=== PATIENT | female | born 1975 | race Caucasian/White ===

== ENCOUNTER 2016-11-13 10:00 | Day surgery (SDC) | payer OTHER ==
[2016-11-09 09:26] VITALS: BMI 34.7
[~2016-11-13 10:00] MED LIST: LACTATED RINGERS 1,000 ML IV SCH
[2016-11-13 10:16] VITALS: RESP 16; TEMP 97.4
[2016-11-13] MEDS ORDERED: LIDOCAINE 1% 20 ML VIAL (10MG/ML) FOR IV START INTRADERMA ONE (10:20)
[2016-11-13] MEDS ORDERED: PROPOFOL 10 MG/ML 20 ML VIAL IV ONE (11:18)
--- NOTE | 2016-11-13 11:24 | P.GSHP ---
History of Present Illness H&P Date: 11/13/16 Chief Complaint: GERD This is a 41-year-old female referred from Dr. mae. Patient rents today for EGD. She's had issues with GERD. - Constitutional Constitutional: Reports as per HPI Past Medical History Past Medical History: GERD/Reflux Additional Past Medical History / Comment(s): STATES HAS HAD "HEART FLUTTERS" History of Any Multi-Drug Resistant Organisms: None Reported Past Surgical History: Breast Surgery Additional Past Surgical History / Comment(s): BREAST REDUCTION Past Anesthesia/Blood Transfusion Reactions: Motion Sickness Additional Past Anesthesia/Blood Transfusion Reaction / Comment(s): PRE MEDICATED FOR PONV FOR PREVIOUS SX Past Psychological History: ADD/ADHD, Anxiety, Depression Smoking Status: Never smoker Past Alcohol Use History: None Reported Past Drug Use History: None Reported - Past Family History Son(s) Family Medical History: Cancer Additional Family Medical History / Comment(s): NEUROBLASTOMA Medications and Allergies Home Medications Medication Instructions Recorded Confirmed Type Methylphenidate HCl [Concerta] 36 mg PO HS 11/09/16 11/13/16 History Venlafaxine HCl [Effexor] 75 mg PO 11/09/16 11/13/16 History Allergies Allergy/AdvReac Type Severity Reaction Status Date / Time codeine Allergy "SHUTS OFF Verified 11/09/16 09:20 MY AIRWAY" BAND AID Allergy RED, Uncoded 11/09/16 09:20 BURNING SKIN PAPER TAPE Allergy RED,ITCHING,BURNING Uncoded 11/09/16 09:20 SKIN Surgical - Exam Vital Signs Temp Pulse Resp BP Pulse Ox 97.4 F L 61 16 116/70 96 11/13/16 10:10 11/13/16 10:10 11/13/16 10:10 11/13/16 10:10 11/13/16 10:10 - General well developed, no distress - Eyes PERRL - ENT normal pinna - Neck no masses - Respiratory normal expansion - Cardiovascular Rhythm: regular - Abdomen Abdomen: soft, non tender Assessment and Plan Plan: GERD. We'll perform EGD.
--- NOTE | 2016-11-13 11:35 | P.OP ---
Date of Procedure: 11/13/16 Preoperative Diagnosis: Indigestion Postoperative Diagnosis: Mild antral gastritis No evidence of hiatal hernia Mild esophagitis Procedure(s) Performed: EGD Implants: Anesthesia: MAC Surgeon: Delbert Ralph Pathology: other (Antrum, esophagus) Condition: stable Disposition: PACU Indications for Procedure: Operative Findings: Description of Procedure: Patient's placed on the endoscopy table in the lateral position. She received IV sedation. The gastroscope some placed oropharynx passed in the esophagus and into the stomach. The scope was then placed through the pylorus. The first and second portion of the duodenum appeared normal. Scope was then brought back the antrum this appeared mildly inflamed. A biopsies performed. Scope was unretroflexed and remainder stomach appeared normal. The GE junction was at 40 cm. The distal esophagus appeared mildly inflamed a biopsies performed. There is no evidence of a hiatal hernia. The proximal esophagus appeared normal. Scope was withdrawn for patient. Due to the patient's symptoms of indigestion a HIDA scan was ordered. Patient was sent to recovery in stable condition.
[2016-11-13 11:52] VITALS: BP 104/65; PULSE 50
--- NOTE | 2016-11-13 15:06 | NM ---
EXAMINATION TYPE: NM hepatobiliary w EF DATE OF EXAM: 11/13/2016 COMPARISON: NONE HISTORY: Indigestion, heart burn, reflux TECHNIQUE: After the intravenous administration of 5.5 mCi Tc 99m Mebrofenin hepatobiliary scintigrap hy is performed. Immediate images post injection. FINDINGS: There is satisfactory initial accumulation of tracer by the liver. The gallbladder is visualized wit hin 14 minutes. The small bowel activity is noted within 16 minutes. At one hour 8 ounces of oral e nsure plus is given to mimic CCK and gallbladder ejection fraction is calculated at 92 %. Therefore there is no scintigraphic evidence of cystic or common bile duct obstruction to suggest acute cholecy stitis. IMPRESSION: No cystic duct reduction, gallbladder ejection fraction 92%
== END 2016-11-13 12:45 | disposition home or self-care (01) ==
LOC: ORWHC2ENDO 10:00
PROVIDERS: ATTEND Surgery
DX: K29.50 Unspecified chronic gastritis without bleeding (principal); K21.0 Gastro-esophageal reflux disease with esophagitis; K20.0 Eosinophilic esophagitis; K30 Functional dyspepsia; F90.9 Attention-deficit hyperactivity disorder, unspecified type; F32.9 Major depressive disorder, single episode, unspecified; F41.9 Anxiety disorder, unspecified; Z79.899 Other long term (current) drug therapy; Z88.5 Allergy status to narcotic agent; Z91.09 Other allergy status, other than to drugs and biological substances
CPT/HCPCS: 81025; 88305; 88342; 78226; 43239; A9537; J2704

== ENCOUNTER → 2022-01-03 | Outpatient (CLI) | payer OTHER ==
--- NOTE | 2022-01-03 11:25 | P.SLEEP ---
History of Present Illness DATE: 01/03/2022 CONSULTATION/NEW PATIENT EVALUATION HISTORY OF PRESENT ILLNESS/SLEEP-WAKE EVALUATION: 46year old lady had been ev aluated in the sleep center for possible obstructive sleep apnea hypopnea syndrome and excessive daytime sleepiness. SLEEP SCHEDULE: Usually sleep schedule on weekdays 910 PM to 6 AM, during days off 1011 PM to 89 AM. FALLING ASLEEP: No problem with falling asleep. DURING SLEEP: Patient usually sleeps on the side and stomach positions. She snores and wakes up several times. Positive history of nocturia. Episodes of panic attacks, restless legs, heartburn at night. No history of hypnogogical hallucinations, sleep paralysis, or cataplexy. DURING THE DAY/WAKE STATE: During the day patient has difficulties to pay attention this problem with memory concentration and irritability and depression anxiety. [place] sleepiness scale is 6, but this is with taken ritalin in up to 30 mg. Without Ritalin she probably will fall asleep during the day. PAST MEDICAL HISTORY: Depression, bipolar, episodes of panic attacks, ADH D, ALLERGY, menopause. PAST SURGICAL HISTORY: Breast reduction MEDICATIONS: Ritalyn 30 mg once a day, Zyrtec, Effor 37.5 mg once a day. SOCIAL HISTORY: Negative for smoking, alcohol consumption occasional. FAMILY HISTORY: Hypertension, cancer, restless leg syndrome. REVIEW OF SYSTEMS: Snoring, awakenings from sleep, tiredness and sleepiness during the day. No fevers. No double vision. No recent chest pain. No shortness of breath. No abdominal pain. No bleeding episodes. No blood in urine. No seizure episodes. PHYSICAL EXAMINATION: GENERAL: A pleasant patient without any distress. VITAL SIGNS: BP 117/77, HR 61, RR 16, weight 201 pounds, height 5 foot 3-1/4 inches, body mass index 35.3. HEENT: PERRLA, EOMI. Evaluation of oropharynx showed tongue protrudes midline, low position of soft palate Mallampati 4. NECK: Supple. No JVD. Thyroid is not palpable. 14-3/4 inches in circumference. LUNGS: Clear to percussion and to auscultation. Good air exchange. No wheezing or rhonchi. HEART: S1, S2 regular. No murmurs, gallops or rubs. ABDOMEN: Soft and nontender. Bowel sounds are present. No organomegaly appreciated. EXTREMITIES: No clubbing or cyanosis. BLOOD BANK SPECIALIST: Awake, alert, and oriented x3. Cranial nerves 2 to 7 intact. There is no fasciculation or atrophy noted. No focal deficits observed. ASSESSMENT: 1. Snoring, awakenings from sleep, extremely low position of soft palate Mallampati 4. Possible obstructive sleep apnea hypopnea syndrome. 2. Tiredness and sleepiness even while patient is on treatment with Ritalin. Differential diagnosis should include hypersomnia. 3 bipolar. 4. Depression. 5 history of panic attacks. 6. History of restless leg symptoms. 7. History of ADH D. 8. Menopause. 9. Status post breast reduction. PLAN: 1. Polysomnography for evaluation of patient's breathing during sleep. MSLT if sleep study is negative for obstructive sleep apnea hypopnea syndrome. No Ritalyn during MSLT. 2. CPAP/BiPAP titration if sleep study confirms obstructive sleep apnea- hypopnea syndrome. 3. Preferable position during sleep on the side. 4. No driving if patient feels any sleepiness. Patient is aware of civil and criminal liability for unsafe driving. 5. Sleep hygiene with regular sleep time for at least 7.5-8 hours. 6. Watching weight. Sincerely, Casey Owens MD, PhD, FAASM. Diplomat of [place] [employer], Sleep Medicine Board by [place] [employer] [place] [employer] Systems Engineer of [facility] [place] Past Medical History Past Medical History: GERD/Reflux Additional Past Medical History / Comment(s): STATES HAS HAD "HEART FLUTTERS" History of Any Multi-Drug Resistant Organisms: None Reported Past Surgical History: Breast Surgery Additional Past Surgical History / Comment(s): BREAST REDUCTION Past Anesthesia/Blood Transfusion Reactions: Motion Sickness Additional Past Anesthesia/Blood Transfusion Reaction / Comment(s): PRE MEDICATED FOR PONV FOR PREVIOUS SX Past Psychological History: ADD/ADHD, Anxiety, Depression Past Alcohol Use History: None Reported Past Drug Use History: None Reported - Past Family History Son(s) Family Medical History: Cancer Additional Family Medical History / Comment(s): NEUROBLASTOMA Medications and Allergies Home Medications Medication Instructions Recorded Confirmed Type Methylphenidate HCl [Concerta] 36 mg PO HS 11/09/16 11/21/16 History Venlafaxine HCl [Effexor] 75 mg PO HS 11/09/16 11/21/16 History Allergies Allergy/AdvReac Type Severity Reaction Status Date / Time codeine Allergy "SHUTS OFF Verified 11/21/16 12:36 MY AIRWAY" BAND AID Allergy RED, Uncoded 11/21/16 12:36 BURNING SKIN PAPER TAPE Allergy RED,ITCHING,BURNING Uncoded 11/21/16 12:36 SKIN Sleep Note - Sleep Note Sleep Note: Temperature: Pulse Rate: Respiratory Rate: Blood Pressure: SpO2: Height: Weight: BMI: Neck Circumference:
== END ==
LOC: SLEEP 09:55
PROVIDERS: ATTEND Internal Medicine
DX: R40.0 Somnolence (principal); R06.83 Snoring; F31.9 Bipolar disorder, unspecified; F41.0 Panic disorder [episodic paroxysmal anxiety]; G25.81 Restless legs syndrome; F90.9 Attention-deficit hyperactivity disorder, unspecified type; Z78.0 Asymptomatic menopausal state; Z98.890 Other specified postprocedural states; Z88.5 Allergy status to narcotic agent; Z91.048 Other nonmedicinal substance allergy status
CPT/HCPCS: 99211

== ENCOUNTER 2022-12-27 08:03 | Day surgery (SDC) | payer OTHER ==
[~2022-12-27 08:03] MED LIST changes: +DEXAMETHASONE SOD PHOSPHATE 4 MG/ML 1 ML VIAL IV ONE; +ONDANSETRON 4 MG/2 ML VIAL IVP ONE; +fentaNYL (PF) 50 MCG/ML 2 ML AMP IV PRN
[2022-12-27 08:37] VITALS: TEMP 97.3
[2022-12-27] MEDS ORDERED: PROPOFOL 10 MG/ML 20 ML VIAL IV ONE (08:59)
--- NOTE | 2022-12-27 09:01 | P.GSHP ---
History of Present Illness H&P Date: 12/27/22 Chief Complaint: Rectal bleeding This a 47-year-old female presents today for colonoscopy patient's issues with rectal bleeding. Past Medical History Past Medical History: GERD/Reflux, Skin Disorder Additional Past Medical History / Comment(s): STATES HAS HAD "HEART FLUTTERS" has not had in a long time, Sore left knee dog ran into her. eczema. History of Any Multi-Drug Resistant Organisms: None Reported Past Surgical History: Breast Surgery Additional Past Surgical History / Comment(s): BREAST REDUCTION, egd Past Anesthesia/Blood Transfusion Reactions: Motion Sickness, Postoperative Nausea & Vomiting (PONV) Additional Past Anesthesia/Blood Transfusion Reaction / Comment(s): PRE MEDICATED FOR PONV FOR PREVIOUS SX Smoking Status: Never smoker - Past Family History Son(s) Family Medical History: Cancer Additional Family Medical History / Comment(s): NEUROBLASTOMA Father Family Medical History: AFIB Medications and Allergies Home Medications Medication Instructions Recorded Confirmed Type Lisdexamfetamine Dimesylate 60 mg PO DAILY 12/25/22 12/27/22 History [Vyvanse] Neurochondria Coq10/B12 1 tab PO DAILY 12/25/22 12/25/22 History Unk Adrenaltone 2 tab PO BID 12/25/22 12/25/22 History Unk Femguard + Balance 1 tab PO DAILY 12/25/22 12/25/22 History Unk Fish Oil 1 tab PO HS 12/25/22 12/25/22 History Unk Otc Orthomune Immune 2 tab PO DAILY 12/25/22 12/25/22 History Venlafaxine HCl [Effexor] 75 mg PO HS 12/25/22 12/25/22 History hydrOXYzine pamoate [hydrOXYzine 25 mg PO HS 12/25/22 12/27/22 History PAMOATE] Allergies Allergy/AdvReac Type Severity Reaction Status Date / Time codeine Allergy "SHUTS OFF Verified 12/27/22 08:27 MY AIRWAY" latex Allergy red skin , Verified 12/27/22 08:27 rash BAND AID Allergy RED, Uncoded 12/27/22 08:27 BURNING SKIN PAPER TAPE Allergy RED,ITCHING,BURNING Uncoded 12/27/22 08:27 SKIN Surgical - Exam Vital Signs Temp Pulse Resp BP Pulse Ox 97.3 F L 67 16 105/56 94 L 12/27/22 08:34 12/27/22 08:34 12/27/22 08:34 12/27/22 08:34 12/27/22 08:34 - General well developed - Eyes normal ocular movement - ENT normal pinna - Neck no masses - Respiratory normal expansion - Cardiovascular Rhythm: regular - Abdomen Abdomen: soft, non tender Assessment and Plan Assessment: Rectal bleeding. We'll perform colonoscopy.
--- NOTE | 2022-12-27 09:15 | P.OP ---
Date of Procedure: 12/27/22 Preoperative Diagnosis: GI bleed Postoperative Diagnosis: Internal hemorrhoids Procedure(s) Performed: Colonoscopy Anesthesia: MAC Surgeon: Delbert Ralph Pathology: none sent Condition: stable Disposition: PACU Description of Procedure: The patient's placed on the endoscopy table in the lateral position. She received IV sedation. Digital rectal exam performed. This revealed a few internal hemorrhoids. Flexible colonoscope was then placed patient anus and passed throughout the entire colon. The ileocecal valve was visualized. The cecum, ascending and transverse colon appeared normal. The descending and sigmoid colon appeared normal. Scope was brought back the rectum this appeared normal. Scope withdrawn through the anus and internal hemorrhoids were noted. There is no evidence of any active GI bleed. Presumed patient may been bleeding from internal hemorrhoids.
[2022-12-27 09:39] VITALS: BP 121/74; PULSE 60; RESP 18
== END 2022-12-27 09:58 | disposition home or self-care (01) ==
LOC: ORWHC2ENDO 08:03
PROVIDERS: ATTEND Surgery
DX: K64.8 Other hemorrhoids (principal); K21.9 Gastro-esophageal reflux disease without esophagitis; Z87.2 Personal history of diseases of the skin and subcutaneous tissue; Z79.899 Other long term (current) drug therapy; Z88.5 Allergy status to narcotic agent; Z91.048 Other nonmedicinal substance allergy status; Z91.040 Latex allergy status
CPT/HCPCS: 45378; J2704

== ENCOUNTER → 2023-08-01 | Outpatient (CLI) | payer OTHER ==
--- NOTE | 2023-08-02 18:58 | MM ---
Reason for Exam: Screening (asymptomatic). Patient History: Menarche at age 13. First Full-Term at age 19. 2000, Bilateral Reduction. Last menstrual period: Risk Values: Renae 5 year model risk: 0.8%. NCI Lifetime model risk: 7.4%. Prior Study Comparison: No prior studies available for comparison. Tissue Density: There are scattered fibroglandular densities. Findings: Analyzed By CAD. No significant mass, suspicious microcalcification, or other discrete abnormality is seen. Overall Assessment: Negative, BI-RAD 1 Management: Screening Mammogram of both breasts in 1 year. . Patient should continue monthly self-breast exams. A clinical breast exam by your physician is recommended on an annual basis. This exam should not preclude additional follow-up of suspicious palpable abnormalities. Note on Renae scores and lifetime risk: 1. A Renae score greater than 3% is considered moderate risk. If this is the case, consider specialist referral to assess eligibility for a risk reducing agent. 2. If overall lifetime risk for the development of breast cancer is 20% or higher, the patient may qualify for future screening with alternating mammogram and breast MRI. Electronically signed and approved by: Ailin Hutchinson M.D. Radiologist
== END | disposition home or self-care (01) ==
LOC: RADMAMWWP 08:45
PROVIDERS: ATTEND Family Medicine
DX: Z12.31 Encounter for screening mammogram for malignant neoplasm of breast (principal)
CPT/HCPCS: 77063; 77067

== ENCOUNTER → 2023-09-20 | Outpatient (CLI) | payer OTHER ==
--- NOTE | 2023-09-20 23:30 | MR ---
EXAMINATION TYPE: MR knee LT wo con DATE OF EXAM: 09/20/2023 COMPARISON: NONE HISTORY: Left knee pain and swelling and locking x20 months TECHNIQUE: Multiplanar, multisequence images of the knee is performed without IV contrast. FINDINGS: MEDIAL MENISCUS: Anterior and posterior horns are intact without tear. LATERAL MENISCUS: Abnormal signal throughout anterior and posterior horns appears to extend to articu lar surface. CRUCIATE LIGAMENTS: The anterior and posterior cruciate ligaments are intact and unremarkable. COLLATERAL LIGAMENTS: The medial collateral ligament and lateral collateral ligament complex are inta ct and unremarkable. EXTENSOR MECHANISM: Visualized quadriceps and patellar tendons are intact. EFFUSION: Small to moderate size suprapatellar joint effusion. POPLITEAL CYST: Small to moderate size popliteal/james cyst with some adjacent surrounding fluid sugg esting leak. TRICOMPARTMENT SPACES: [id number] tricompartment joint space loss. No significant spurring. CARTILAGE: Tricompartment articular cartilage fairly well preserved. BONE MARROW SIGNAL: No focal abnormal marrow signal is appreciated. OTHER: No additional significant abnormality is appreciated. IMPRESSION: 1. Full-thickness tears through the anterior and posterior horns of the lateral meniscus. 2. Small to moderate-size suprapatellar joint effusion. 3. Small to moderate-size leaking popliteal cyst. 4. Mild tricompartment degenerative changes as detailed above.
== END | disposition home or self-care (01) ==
LOC: RADMRIMAIN 20:45
PROVIDERS: ATTEND Family Medicine
DX: M17.12 Unilateral primary osteoarthritis, left knee (principal); M25.462 Effusion, left knee; M23.342 Other meniscus derangements, anterior horn of lateral meniscus, left knee; M23.352 Other meniscus derangements, posterior horn of lateral meniscus, left knee; M71.22 Synovial cyst of popliteal space [Baker], left knee; M23.92 Unspecified internal derangement of left knee

== ENCOUNTER → 2023-10-28 | Outpatient (CLI) | payer OTHER ==
[2023-10-28 14:36] LABS: Basophils # (A) 0.05 X 10*3/uL (0.00-0.10); Basophils % (A) 0.9 %; Eosinophils # (A) 0.13 X 10*3/uL (0.04-0.35); Eosinophils % (A) 2.2 %; HCT 40.7 % (37.2-46.3); HGB 12.9 g/dL (12.0-15.0); Lymphocytes # (A) 2.06 X 10*3/uL (0.90-5.00); Lymphocytes % (A) 35.6 %; MCH 28.3 pg (27.0-32.0); MCHC 31.7 g/dL (32.0-37.0); MCV 89.3 FL (80.0-97.0); Mean Platelet Volume 10.2 FL (9.5-12.2); Monocytes # (A) 0.39 X 10*3/uL (0.20-1.00); Monocytes % (A) 6.7 %; NRBC Per 100 WBC 0 X 10*3/uL (0.00-0.01); Neutrophils # (A) 3.13 X 10*3/uL (1.80-7.70); Neutrophils % (A) 54.3 %; Platelet Count 279 X 10*3/uL (140-440); RBC 4.56 X 10*6/uL (4.10-5.20); RDW 13.6 % (11.5-14.5); WBC 5.78 X 10*3/uL (4.50-10.00)
[2023-10-28 14:52] LABS: Anion Gap 10.5 mmol/L (4.00-12.00); Carbon Dioxide 25.5 mmol/L (21.6-31.8); Potassium 4.9 mmol/L (3.5-5.5)
== END | disposition home or self-care (01) ==
LOC: LABPAT 08:50
PROVIDERS: ATTEND Orthopaedic Surgery
DX: Z01.818 Encounter for other preprocedural examination (principal); M23.92 Unspecified internal derangement of left knee; R94.31 Abnormal electrocardiogram [ECG] [EKG]
CPT/HCPCS: 80051; 85025; 93005

== ENCOUNTER → 2023-10-31 | Day surgery (SDC) | payer OTHER ==
[2023-10-28 10:19] VITALS: BMI 35.6
--- NOTE | 2023-10-30 13:50 | HP ---
HISTORY AND PHYSICAL DATE OF SCHEDULED SURGERY: 10/31/2023. HISTORY OF PRESENT ILLNESS: Lori Lal is a 48-year-old patient who was seen with progressive left knee pain. We discussed options. She elected to proceed with left knee arthroscopy. Consent regarding procedure obtained. PAST MEDICAL HISTORY: Noncontributory. PAST SURGICAL HISTORY: Noncontributory. DAILY MEDICATIONS: None. ALLERGIES: None reported. SOCIAL HISTORY: She denies tobacco use. PHYSICAL EVALUATION OF THE LEFT KNEE: Range of motion is 0 to 120 degrees. Mild effusion. Tenderness along the medial and lateral joint lines. Positive medial Dafne's. Positive lateral Dafne's. Ligaments stable. Hip rotation without pain. Distal neurovascular exam is intact. IMAGING STUDIES: Radiographs of the left knee revealed mild osteoarthritis and effusion. MRI left knee revealed lateral meniscal tears, effusion, and popliteal cyst. IMPRESSION: Internal derangement left knee with lateral meniscal tear. PLAN: Left knee arthroscopy with partial lateral meniscectomy and debridement. MMODL / IJN: [id number] /
[~2023-10-31] MED LIST changes: -DEXAMETHASONE SOD PHOSPHATE 4 MG/ML 1 ML VIAL IV ONE; +HYDROcodone/APAP 5-325MG 1 EACH TAB ONE; +HYDROmorphone 0.5 MG/0.5 ML SYRINGE IVP PRN; +KETOROLAC 30 MG/ML 1 ML VIAL ONE; -LACTATED RINGERS 1,000 ML IV SCH; +LIDOCAINE 1% (10MG/ML) FOR IV START INTRADERMA PRN; +LIDOCAINE 1% INJ 10MG/ML (20 ML MDV) ONE; +MIDAZOLAM 2 MG/2 ML VIAL IV PRN; +MIDAZOLAM 2 MG/2 ML VIAL ONE; -ONDANSETRON 4 MG/2 ML VIAL IVP ONE; +PROPOFOL 10 MG/ML 20 ML VIAL IV ONE; -fentaNYL (PF) 50 MCG/ML 2 ML AMP IV PRN; +fentaNYL (PF) 50 MCG/ML 2 ML AMP ONE
[2023-10-31] MEDS: LACTATED RINGERS 1,000 ML IV SCH (14:13)
[2023-10-31] MEDS: ONDANSETRON 4 MG/2 ML VIAL IVP ONE (14:20)
[2023-10-31] MEDS: DEXAMETHASONE SOD PHOSPHATE 4 MG/ML 1 ML VIAL IV ONE (14:20)
[2023-10-31] MEDS: FAMOTIDINE 20 MG/2 ML VIAL IVP ONE (14:54)
[2023-10-31] MEDS: BUPIVACAINE (PF) 0.25% 30 ML VIAL SQ ONE (16:17)
--- NOTE | 2023-10-31 17:03 | P.OP ---
Date of Procedure: 10/31/23 Preoperative Diagnosis: Internal derangement left knee Postoperative Diagnosis: 1. Tear medial and lateral meniscus left knee 2. Grade IV chondromalacia medial femoral condyle left knee 3. Reactive synovitis medial, lateral and suprapatellar compartments left knee 4. Medial plica left knee Procedure(s) Performed: 1. Arthroscopic partial medial and lateral meniscectomy left knee 2. Arthroscopic microfracture medial femoral condyle left knee 3. Arthroscopic partial synovectomy medial, lateral and suprapatellar compartments left knee 4. Arthroscopic resection medial plica left knee 5. Arthroscopic chondroplasty medial femoral condyle left knee Anesthesia: WALT, local Surgeon: Joseph Houston Estimated Blood Loss (ml): 6 Pathology: none sent Condition: stable Disposition: PACU Indications for Procedure: 48-year-old patient seen with progressive left knee pain. After having treatment options discussed, she elected to proceed with arthroscopy. Operative Findings: See description of procedure Description of Procedure: Patient was taken to the operative suite. Patient underwent a general anesthetic by the department of anesthesia. Patient was given preoperative antibiotics. The left lower extremity was placed in a well-padded arthroscopic leg de león. The left leg was prepped and draped in the normal sterile orthopedic fashion. A lateral parapatellar and suprapatellar incision was made. Trochars were inserted. Arthroscopy was initiated. Suprapatellar pouch revealed diffuse thick reactive synovitis. The patellofemoral joint appeared to articular congruently. There was grade I/II chondromalacia of the patellofemoral joint. The scope was guided into the medial gutter. There was no loose body evident. There was a medial plica which did impinge on the medial femoral condyle with range of motion. The scope was then guided into the medial compartment. A medial parapatellar incision was made. Trocar inserted followed by probe. There was a small radial tear involving the posterior horn of the medial meniscus. There were grade II/III chondromalacia changes medial femoral condyle weightbearing surface with osteochondral flap tears present. There was thick reactive synovitis anteriorly. I performed a partial medial meniscectomy getting down to stable meniscal tissue. I performed a chondroplasty of the medial femoral condyle getting down to stable osteochondral tissue. I performed a partial synovectomy decompressing the thick reactive synovitis anteriorly. I did note a area of exposed bone grade IV chondromalacia along the anterior aspect of the medial femoral condyle. I introduced a microfracture awl and I performed a microfracture to that area of exposed bone penetrating the bone with resultant bleeding at the microfracture site. The residual meniscus was probed and was found to be stable. The residual osteochondral surface appeared stable. There was good decompression of the synovitis. Scope and probe were then guided into the intercondylar notch. Cruciates were identified, probed and found to be stable. The scope and probe were then guided into lateral compartment. There was an extensive complex tear involving the anterior, mid body and posterior horns of the lateral meniscus. There were grade I/II chondromalacia changes involving lateral compartment without tears. There was thick reactive synovitis anteriorly. I performed a partial lateral meniscectomy getting down to stable meniscal tissue. I performed a partial synovectomy decompressing that reactive synovitis. The residual meniscus was probed and was found to be stable. There was good decompression of the synovitis. The scope was in guided back into the suprapatellar compartment. I introduced a motorized shaver into the suprapatellar compartment. I debrided some piecemeal fragments of meniscus that I encountered. I resected that medial plica. I performed a partial synovectomy. The shaver was removed. There was good decompression of the synovitis. I took the knee through range of motion and noted complete resection of plica with no impingement. I now took 1 more look around the entire knee, no residual debris. Instruments were now removed from the joint. The joint was infiltrated with .25% Marcaine. Steri-Strips were applied to the portal sites. Sterile dressings were applied. The patient was placed into a FRANNIE hose. No tourniquet was utilized. The patient was awakened, transferred to a bed and taken to recovery stable satisfactory condition.
[2023-10-31] MEDS: HYDROmorphone 0.5 MG/0.5 ML SYRINGE IVP ONE (17:35)
[2023-10-31 17:44] VITALS: RESP 16; TEMP 97
[2023-10-31] MEDS: HYDROcodone/APAP 5-325MG 1 EACH TAB PO ONE (18:05)
[2023-10-31 18:35] VITALS: BP 106/66; PULSE 83
== END | disposition home or self-care (01) ==
LOC: OR 13:32
PROVIDERS: ATTEND Orthopaedic Surgery
DX: S83.242A Other tear of medial meniscus, current injury, left knee, initial encounter (principal); S83.282A Other tear of lateral meniscus, current injury, left knee, initial encounter; M94.262 Chondromalacia, left knee; M65.862 Other synovitis and tenosynovitis, left lower leg; M67.52 Plica syndrome, left knee; X58.XXXA Exposure to other specified factors, initial encounter
CPT/HCPCS: 29880; 29879; J2250; J1100; J0690; J2405; J2001; J3010; J1885; J3490; J2704; J1170; J0665